=== PATIENT | male | born 1945 | race Caucasian/White ===

== ENCOUNTER 2017-07-01 23:36 | Inpatient (IN) | payer OTHER ==
[~2017-07-01] VITALS: Ht 172.7 cm; Wt 74.8 kg
[~2017-07-01 23:36] MED LIST: ALBUTEROL SULFAT4 MG PO; ASPIRIN EC81 M1 PO; ASPIRIN81 M2 PO; ATORVASTATIN CA40 MG PO; BAYER CHEWABLE81 MG PO; CARAFATE1 GM/10 ML PO; CLARITIN10 MG PO; COUMADIN 4 MG TA4 M1 PO; COUMADIN 5 MG TA5 M1 PO; DUONEB 2.5-0.5 M3 ML INH; DUONEB 2.5-0.5 M3 ML PO; ECOTRIN325 MG PO; FLONASE 0.05%50 MCG NASAL; LASIX 40 MG TAB40 M2 PO; LEVAQUIN 500 M500 M2 PO; LEVOFLOXACIN PO; LISINOPRIL5 MG PO; LOPRESSOR25 PO; METOPROLOL SUCC25 M1 PO; OMEPRAZOLE40 MG PO; OXYCODONE HCL 55 MG PO; PATANASE30.5 GM NASAL; PATANASE30.5 GM NS; PREDNISONE 10 M10 M1 PO; PREDNISONE 10 M10 MG PO; PREDNISONE 20 M20 M1 PO; PREDNISONE10 MG PO; PRILOSEC 20 MG20 MG PO; PRILOSEC40 MG PO; PROAIR HFA8.5 GM INH; PROTONIX40 M1 PO; RANITIDINE HCL300 MG PO; SINGULAIR 10 MG10 M1 PO; TOPROL XL25 MG PO; TOPROL XL50 MG PO; ZANTAC 150MG T150 MG PO
[2017-07-01 23:38] VITALS: BP 151/86
[2017-07-01] MEDS ORDERED: OMEPRAZOLE20 M2 PO (23:45)
--- NOTE | 2017-07-01 23:53 | NUR ---
RT IN TO GIVE NEB TX
[2017-07-02 00:06] LABS: ABSOLUTE BASOPHILS 0.1 thou/uL (0.0-0.2); ABSOLUTE EOSINOPHILS 0.4 thou/uL (0.0-0.7); ABSOLUTE LYMPHOCYTES 2.6 thou/uL (0.8-5.3); ABSOLUTE MONOCYTES 0.8 thou/uL (0.0-1.2); ABSOLUTE NEUTROPHILS 5.1 thou/uL (1.6-8.1); BASOPHILS 1.4 %; EOSINOPHILS 4.8 %; HEMOGLOBIN 15.2 gm/dL (14.0-18.0); LYMPHOCYTES 29.1 %; MCH 31.2 pg (26.0-34.0); MCV 94.7 fL (80.0-100.0); MONOCYTES 8.7 %; MPV 7.5 fl. (7.2-11.1); NUCLEATED RBCS 0 /100WBC; PLATELET COUNT* 298 thou/uL (150-400); RBC 4.86 mil/uL (4.50-6.00); RDW-CV 13.8 % (10.5-14.5)
[2017-07-02 00:21] LABS: APTT 41.5 Seconds (25.0-31.3); INR 2.6; PROTIME 24.9 Seconds (9.20-11.50)
[2017-07-02 00:24] LABS: ANION GAP 6 mmol/L (7-16); BUN 16 mg/dL (7-18); CALCIUM 9.4 mg/dL (8.5-10.1); CHLORIDE 101 mmol/L (98-107); CO2 30 mmol/L (21-32); GLUCOSE 107 mg/dL (70-99); POTASSIUM 4.1 mmol/L (3.5-5.1); SODIUM 137 mmol/L (136-145)
[2017-07-02 00:34] LABS: ALBUMIN 3.5 g/dL (3.4-5.0); ALKALINE PHOSPHATASE 125 U/L (46-116); LIPASE 96 U/L (73-393); MAGNESIUM 1.9 mg/dL (1.8-2.4); NT-PRO BRAIN NAT PEPTIDE 207 pg/mL (<300); SGOT 19 U/L (15-37); SGPT 23 U/L (30-65); TOTAL BILIRUBIN 0.3 mg/dL (<0.1-1.0); TOTAL PROTEIN 6.9 g/dL (6.4-8.2); TROPONIN-I LEVEL <0.06 ng/mL (<0.06)
[2017-07-02 03:05] VITALS: BP 146/85; BP 156/85
--- NOTE | 2017-07-02 05:09 | NUR ---
PATIENT ARRIVED ON UNIT AT 0305. TRANSFERRED WITH STANDBY ASSIST FROM ER CART TO UNIT BED. VITAL SIGNS STABLE AND OXYGEN SAT MAINTAINED ON 4 LITERS OF OXYGEN. ADMISSION COMPLETE CHARTED. IV PATENT IN THE RIGHT HAND SALINE LOCKED. BED IN LOW POSITION. HOURLY ROUNDING COMPLETE. CALL LIGHT WITHIN REACH. NURSING WILL CONTINUE TO MONITOR.
[2017-07-02 08:30] VITALS: BP 125/69
--- NOTE | 2017-07-02 09:35 | EKG ---
[place] [address] ELECTROCARDIOGRAM REPORT Name: LYNNE STONE Room: [address] IN [facility].#: [id number] Admission: 07/02/17 Attend Phys: Filipe Reddy MD Discharge: Date of : 45 Report #: [id number] THIS REPORT FOR: //name// [facility] ED Test Date: 2017-07-01 Test Time: 23:49:45 Pat Name: LYNNE STONE Department: Room: Gender: M Assistant Financial Accountant: : 1945 Requested By: Giovanny Seymour Order Number: [id number] MD: Jose Ochoa Measurements Intervals [place] Rate: 99 P: 74 FL: 178 QRS: 70 QRSD: 88 T: 60 QT: 327 QTc: 420 Interpretive Statements Sinus rhythm Low voltage with right axis deviation Consider anterior infarct Compared to ECG 09/21/2016 05:38:51 Right-axis deviation now present Myocardial infarct finding still present Electronically Signed On 07-02-2017 9:35:40 CDT by Jose Ochoa [email or web address] <ELECTRONICALLY SIGNED> By: Jose Ochoa MD, FACC 07/02/17 0935 [id number] [id number] Jose Ochoa MD, [facility] /EPI
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
[2017-07-02 16:26] VITALS: BP 114/67
--- NOTE | 2017-07-02 18:52 | NUR ---
ALERT AND ORIENTED X4. UP AD JAMES IN ROOM. IV IS PATENT AND SALINE LOCKED. DENIES PAIN. DENIES NAUSEA. RECIEVING BREATHING TREATMENTS THROUGHOUT SHIFT. NURSE REMOVED HOME MEDICATIONS FROM BEDSIDE AND SENT TO PHARMACY. TOLERATING DIET. VSS ON 4L O2. HOURLY ROUNDS HAVE BEEN MAINTAINED THROUGHOUT SHIFT. CALL LIGHT IS WITHIN REACH. NURSING WILL CONTINUE TO MONITOR.
[2017-07-02 20:20] VITALS: BP 123/66
[2017-07-03 04:25] LABS: HEMATOCRIT 43.9 % (42.0-52.0); HEMOGLOBIN 14.3 gm/dL (14.0-18.0); MCH 31.1 pg (26.0-34.0); MCHC 32.6 g/dL (28.0-37.0); MCV 95.2 fL (80.0-100.0); RBC 4.61 mil/uL (4.50-6.00); RDW-CV 13.9 % (10.5-14.5); WBC 15.8 thou/uL (4.0-11.0)
[2017-07-03 04:35] LABS: INR 2.8
[2017-07-03 04:42] LABS: ALBUMIN 3.2 g/dL (3.4-5.0); CALCIUM 9.5 mg/dL (8.5-10.1); CREATININE 1.1 mg/dL (0.6-1.3); MAGNESIUM 1.8 mg/dL (1.8-2.4); POTASSIUM 4.5 mmol/L (3.5-5.1); TOTAL BILIRUBIN 0.3 mg/dL (<0.1-1.0); TOTAL PROTEIN 6.2 g/dL (6.4-8.2)
--- NOTE | 2017-07-03 06:10 | NUR ---
PATIENT ALERT AND ORIENTED. VITALS STABLE ON 4L OF OXYGEN. UP SBA TO BSC. IV PATENT, SALINE LOCKED. PATIENT STATES THATS HE FEELS BETTER. NONPRODUCTIVE COUGH. SLEPT COMFORTABLY THROUGH THE NIGHT. HOURLY ROUNDS. NURSING WILL CONTINUE TO MONITOR.
[2017-07-03 08:23] VITALS: BP 120/64
[2017-07-03] MEDS ORDERED: PREDNISONE 10 M10 MG PO (09:59)
[2017-07-03] MEDS ORDERED: LEVAQUIN 500 M500 M3 PO (09:59)
[2017-07-03] MEDS ORDERED: MIRALAX17 GM PO (10:01)
[2017-07-03 11:20] VITALS: BP 120/64
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
--- NOTE | 2017-07-03 15:29 | NUR ---
ASSUMED CARE OF PATIENT AFTER MORNING REPORT. ALERT AND ORIENTED X4. ASSESSMENT COMPLETED AND CHARTED. VSS ON 4 LITERS 02. PATIENT HAD NO COMPLAINTS OF PAIN OR NAUSEA. SOME COMPLAINTS OF SOA UPON EXERTION. IV ANTIBIOTICS AND STEROIDS INFUSED ORDERED. PATIENT CLEARED FOR DISCHARGE WITH HOME HEALTH. PATIENT DISCHARGED AT 1525, ALL PERSONAL BELONGINGS, PRESCRIPTIONS AND DISCHARGE INFORMATION SENT WITH PATIENT. PATIENT LEFT VIA TAXI CAB WITH HOSPITAL VOUCHER.
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
--- NOTE | 2017-07-09 11:08 | CON ---
[address] [address] CONSULTATION Name: LYNNE STONE Room: [address] IN M.R.#: [id number] Admission: 07/02/17 Attend Phys: Filipe Reddy MD Discharge: 07/03/17 Date of : 45 Report #: [id number] THIS REPORT FOR: //name// CC: Filipe Juarez MD DATE OF SERVICE: 07/02/2017 ADDENDUM REFERRING PHYSICIAN: Filipe Reddy MD I was unable to see this patient on 07/02/2017. I had asked my partner, Dr. Whitehead, to see the patient the following day and he should dictate an addendum regarding the consultation that was dictated by nurse practitioner, Beverly Guardado on 07/02/2017. <ELECTRONICALLY SIGNED> By: Cristiano Montelongo DO 07/09/17 1108 1707 [id number] Montelongo DO /nt
== END 2017-07-03 15:25 | disposition home health service (06) | DRG 391 ==
LOC: M.ERS 23:36 → M.TBA-ER 07-02 01:54 → M.ORTHSURG 07-02 01:54
PROVIDERS: Family Medicine; Internal Medicine; ADMIT Internal Medicine
DX: K21.9 Gastro-esophageal reflux disease without esophagitis (principal); J96.21 Acute and chronic respiratory failure with hypoxia; R65.11 Systemic inflammatory response syndrome (SIRS) of non-infectious origin with acute organ dysfunction; J44.1 Chronic obstructive pulmonary disease with (acute) exacerbation; N20.2 Calculus of kidney with calculus of ureter; M19.90 Unspecified osteoarthritis, unspecified site; I73.9 Peripheral vascular disease, unspecified; F17.210 Nicotine dependence, cigarettes, uncomplicated; R13.10 Dysphagia, unspecified; K59.00 Constipation, unspecified; I10 Essential (primary) hypertension; I25.10 Atherosclerotic heart disease of native coronary artery without angina pectoris; K44.9 Diaphragmatic hernia without obstruction or gangrene; Z86.718 Personal history of other venous thrombosis and embolism; Z79.899 Other long term (current) drug therapy; Z79.01 Long term (current) use of anticoagulants; Z88.0 Allergy status to penicillin; Z88.6 Allergy status to analgesic agent; Z99.81 Dependence on supplemental oxygen; I25.2 Old myocardial infarction; Z98.61 Coronary angioplasty status; Z89.021 Acquired absence of right finger(s); Z98.42 Cataract extraction status, left eye; Z98.41 Cataract extraction status, right eye; Z85.028 Personal history of other malignant neoplasm of stomach